=== PATIENT | male | born 1960 | race Caucasian/White ===

== ENCOUNTER 2019-03-19 16:18 | Inpatient (IN) | payer OTHER ==
[2019-03-19 17:32] VITALS: BMI 21.4
--- NOTE | 2019-03-19 19:22 | HP ---
COWS - Scale Resting Pulse: 1= [place] 81-100 Sweatin=Flushed/Facial Moisture Restless Observation: 3= Extraneous Movement Pupil Size: 2= Moderately Dilated (Pupils = 3 mm) Bone or Joint Aches: 0= None Runny Nose/ Eye Tearin= Nasal Congestion GI Upset > 30mins: 2= Nausea/Diarrhea Tremor Observation: 2= Slight Tremor Visible Yawning Observation: 0= None Anxiety or Irritability: 1=Feels Anxious/Irritable Goose Flesh Skin: 0=Smooth Skin COWS Score: 14 CIWA Score Nausea/Vomitin Muscle Tremors: 3 Anxiety: 1-Mildly Anxious Agitation: 1-Slight > Activity Paroxysmal Sweats: 3 (Increased facial moisture) Orientation: 0-Oriented Tacttile Disturbances: 0-None Auditory Disturbances: 0-None Visual Disturbances: 0-None Headache: 3-Moderate (Pain = "6") CIWA-Ar Total Score: 14 - Admission Criteria OASAS Guidelines: Admission for Medically Managed Detox: Requires at least one of the followin. CIWA greater than 12 2. Seizures within the past 24 hours 3. Delirium tremens within the past 24 hours 4. Hallucinations within the past 24 hours 5. Acute intervention needed for co occurring medical disorder 6. Acute intervention needed for co occurring psychiatric disorder 7. Severe withdrawal that cannot be handled at a lower level of care (continued vomiting, continued diarrhea, abnormal vital signs) requiring intravenous medication and/or fluids 8. Patient presents the following: CIWA greater than 12 Admission Criteria Met: Admission criteria met Admission ROS S - HPI Chief Complaint: Here because I want to get off heroin and stop getting high" Allergies/Adverse Reactions: Allergies Allergy/AdvReac Type Severity Reaction Status Date / Time No Known Allergies Allergy Verified 03/19/19 17:33 History of Present Illness: 59 yo presents w/ opiate withdrawal symptoms seeking detox; [facility] for alcohol detox. ELI: 0.0 UTox: +JENNIFER/MOP Denies hx overdose, seizures or blackouts. Heroin/opiate use began at age 58. Currently increased use to 3-4 bags/day x past 2 months. Uses nasal. Last used 03/18/19 in evening Cocaine use began at age 22. Currently uses $50/day. last used 03/18/19 Alcohol use began at age 14. Currently drinking 3-4 pints vodka/day. States relapsed about 7 days ago. Nicotine use began at age 14. Smokes 1 PPD PMHx: Heart defect - hx heart attack - has 2 stents in 2004; Hx Angina w/ intermittent CP. States was admitted to [facility] for cardiac evaluation 2 weeks ago x 2 days. MHHx: Anxiety. Insomnia. Depression: situational: r/t use of drug and homelessness. Denies thoughts of harming self or others. Does not see a Provider. SHx: Homeless. Unemployed. Denies legal issues. Patient Name: Gene Mesa Date: 1960 Address: [address] [place] [address] Sex: Male Rx Written Rx Dispensed Drug Quantity Days Supply Prescriber Name 02/18/2019 02/18/2019 chlordiazepoxide 10 mg capsule 27 6 Heidy Ceballos Exam Limitations: No Limitations - Ebola screening Have you traveled outside of the country in the last 21 days: No Have you had contact with anyone from an Ebola affected area: No Have you been sick,other than usual withdrawal symptoms: No Do you have a fever: No - Review of Systems Constitutional: Chills, Diaphoresis, Changes in sleep (Difficulty falling asleep ), Unintentional Wgt. Loss (r/t drug use) EENT: reports: Blurred Vision, Nose Congestion, Dental Problems (No teeth. Chews and swallows ok) Respiratory: reports: Cough (Chronic. Clear mucous.), SOB with Exertion Cardiac: reports: No Symptoms Reported, Other (Cardiac Hx) GI: reports: Diarrhea (Soft BM x dark brown x 2 today), Nausea, Abdominal cramping : reports: No Symptoms Reported Musculoskeletal: reports: Back Pain (r/t sleeping on poor/ hard surfaces) Integumentary: reports: Lesions (Pusy lesions on arms and legs from picking at skin) Neuro: reports: Headache (Frontal achy headache. "6"), Tremors Endocrine: reports: Increased Thirst Hematology: reports: No Symptoms Reported Psychiatric: reports: Judgement Intact, Agitated, Anxious, Depressed (Denies thoughts of harming self or others.) Patient History - PPD History Previous Implant?: Yes Documented Results: Negative w/o proof Implanted On Prior [facility] Admission?: Yes PPD to be Administered?: Yes - Smoking Cessation Smoking history: Current every day smoker Have you smoked in the past 12 months: Yes Aproximately how many cigarettes per day: 20 Hx Chewing Tobacco Use: No Initiated information on smoking cessation: Yes 'Breaking Loose' booklet given: 03/19/19 - Substance & Tx. History Hx Alcohol Use: Yes Hx Substance Use: Yes Substance Use Type: Alcohol, Cocaine, Heroin Hx Substance Use Treatment: Yes (detox, ) - Substances abused Alcohol Substance route: Oral Frequency: Daily Amount used: VODKA- 3- 4PTS Age of first use: 14 Date of last use: 03/18/19 Heroin Substance route: Inhalation Frequency: Daily Amount used: 3-4 BAGS Age of first use: 58 Date of last use: 03/18/19 Cocaine Substance route: Smoking Frequency: Daily Amount used: 10BAGS Age of first use: 22 Date of last use: 03/18/19 K2/Spice Substance route: Smoking Frequency: Daily Amount used: BLUNTS -10 Age of first use: 54 Date of last use: 03/19/19 Admission Physical Exam [facility] - Vital Signs Vital Signs: Vital Signs - 24 hr 03/19/19 17:24 Temperature 97.4 F L Pulse Rate 91 H Respiratory 18 Rate Blood Pressure 128/71 - Physical General Appearance: Yes: Moderate Distress, Thin, Tremorous, Sweating ( Increased facial moisture), Anxious HEENTM: Yes: EOMI, Hearing grossly Normal, Normocephalic, Normal Voice, ALEXANDER ( Pupils = 3 mm), Pharynx Normal, Nasal Congestion Respiratory: Yes: Lungs Clear (Pulse Ox = 96 %), Normal Breath Sounds, No Respiratory Distress Neck: Yes: No masses,lesions,Nodules, Supple Breast: Yes: Breast Exam Deferred Cardiology: Yes: Regular Rhythm, Regular Rate, S1, S2 Abdominal: Yes: Non Tender, Flat, Soft, Increased Bowel Sounds Genitourinary: Yes: Within Normal Limits Back: Yes: Normal Inspection Musculoskeletal: Yes: full range of Motion, Gait Steady Extremities: Yes: Normal Capillary Refill, Tremors (Mild), Other (Peripheral pulses +) Neurological: Yes: all purpose clerk II-XII NML intact, Fully Oriented, Alert, Motor Strength 5/5, Normal Mood/Affect, Normal Response Integumentary: Yes: Normal Color, Warm, Mottled (White, moist skin between toes. ), Other (Scattederd scabs w/ surrounding erythema and increased warmth (L) arm approx 20 mm; 2(L) leg approc 15 mm; (R) shoulder approx 5 mm; Top 3 middle toes (L) foot) Lymphatic: Yes: Within Normal Limits - Diagnostic (1) Alcohol dependence with withdrawal, uncomplicated Current Visit: Yes Status: Acute (2) Opioid dependence with withdrawal Current Visit: Yes Status: Acute (3) Cocaine abuse, uncomplicated Current Visit: Yes Status: Chronic (4) History of heart artery stent Current Visit: Yes Status: Chronic Comment: Not on anticoagulants (5) Tinea pedis Current Visit: Yes Status: Chronic Qualifiers: Laterality: bilateral Qualified Code(s): B35.3 - Tinea pedis (6) Skin lesions Current Visit: Yes Status: Acute Comment: Scattered scab lesions w/(+) erythema, induration, and increased warmth x 2 weeks (7) Nicotine dependence, unspecified, uncomplicated Current Visit: Yes Status: Chronic Qualifiers: Nicotine product type: cigarettes Qualified Code(s): F17.210 - Nicotine dependence, cigarettes, uncomplicated (8) Hx of angina pectoris Current Visit: Yes Status: Chronic Cleared for Admission S - Detox or Rehab [facility] Level of Care: Medically Managed Detox Regimen/Protocol: Methadone/Librium Claeared for Rehab Admission: No Breathalyzer - Breathalyzer Breathalyzer: 0 Urine Drug Screen - Test Device Lot number: [id number] Expiration date: 01/11/21 - Control Is test valid?: Yes - Results Drug screen NEGATIVE: No Urine drug screen results: JENNIFER-Cocaine, MOP-Opiates Inpatient Rehab Admission - Rehab Decision to Admit Inpatient rehab admission?: No
[2019-03-19] MEDS ORDERED: MAGNESIUM HYDROX 2400MG/30ML ORAL SUSPENSION 30 ML CUP PO PRN (19:58)
[2019-03-19] MEDS ORDERED: MAG HYDROX/AL HYDROX/SIMETH 30 ML UNIT-DOSE CUP PO PRN (19:58)
[2019-03-19] MEDS ORDERED: ACETAMINOPHEN 325 MG TABLET (FP) PO PRN ×2 (19:58)
[2019-03-19] MEDS ORDERED: MENTHOL/PHENOL 1 EACH UD MM PRN (19:58)
[2019-03-19] MEDS ORDERED: MELATONIN 5 MG TABLETS PO PRN (19:58)
[2019-03-19] MEDS ORDERED: NICOTINE POLACRILEX 2 MG GUM BUC PRN (19:58)
[2019-03-19] MEDS ORDERED: METHOCARBAMOL 500 MG TABLET PO PRN (19:58)
[2019-03-19] MEDS ORDERED: BISMUTH SUBSALICYLATE 524 MG/30 ML UD PO PRN (19:58)
[2019-03-19] MEDS ORDERED: guaiFENesin 200 MG/10 ML 10 ML UNIT-DOSE CUPS PO PRN (19:58)
[2019-03-19] MEDS ORDERED: MAGNESIUM CITRATE 300 ML BOTTLE PO PRN (19:58)
[2019-03-19] MEDS ORDERED: IBUPROFEN 400 MG TABLET (FP) PO PRN (19:58)
[2019-03-19] MEDS ORDERED: cloNIDine HCL 0.1 MG TABLET PO PRN (20:08)
[2019-03-19] MEDS ORDERED: METHADONE HCL 10 MG TABLET (FOR DETOX USE ONLY) PO ONE (20:08)
[2019-03-19] MEDS ORDERED: chlordiazePOXIDE HCL 25 MG CAPSULE PO ONE (22:00)
[2019-03-19] MEDS: BACITRACIN 15 GM TUBE TOPICAL OINTMENT TP SCH (22:37)
[2019-03-19] MEDS: THIAMINE HCL 100 MG TABLET (FP) PO SCH (22:38)
[2019-03-19] MEDS: TOLNAFTATE 1% POWDER 45 GM POW TP SCH (22:57)
[2019-03-19] MEDS: CEPHALEXIN MONOHYDRATE 500 MG CAPSULE (UD) PO SCH (23:01)
[2019-03-20] MEDS: CEPHALEXIN MONOHYDRATE 500 MG CAPSULE (UD) PO SCH ×3 (06:21→17:26)
[2019-03-20] MEDS: chlordiazePOXIDE HCL 25 MG CAPSULE PO SCH ×3 (06:21→22:10)
[2019-03-20] MEDS ORDERED: METHADONE HCL 5 MG TABLET (FOR DETOX USE ONLY) PO ONE (10:00)
[2019-03-20] MEDS: BACITRACIN 15 GM TUBE TOPICAL OINTMENT TP SCH ×2 (10:20→22:10)
[2019-03-20] MEDS: PRENATAL VITAMINS W/ FOLIC ACID TABLET (FP) PO SCH (10:20)
[2019-03-20] MEDS: NICOTINE 14 MG/24 HOURS TOPICAL PATCH TD SCH (10:20)
[2019-03-20] MEDS: ASPIRIN 81 MG CHEWABLE TABLETS PO SCH (10:20)
[2019-03-20] MEDS: TOLNAFTATE 1% POWDER 45 GM POW TP SCH ×2 (10:21→22:13)
[2019-03-20 10:44] LABS: HEMATOCRIT 39.6 % (35.4-49); HEMOGLOBIN 13.1 GM/dL (11.7-16.9); MCHC 33.2 g/dl (32.0-35.9); MEAN CELL VOLUME 96.4 fl (80-96); PLATELET COUNT 349 K/MM3 (134-434); RBC 4.11 M/mm3 (4.00-5.60); RDW 14.3 % (11.9-15.9); WHITE BLOOD COUNT 7.3 K/mm3 (4.0-10.0)
[2019-03-20 10:51] LABS: ALBUMIN 3.2 g/dl (3.4-5.0); BILIRUBIN,TOTAL 0.2 mg/dL (0.2-1); BLOOD UREA NITROGEN 12.9 mg/dL (7-18); CALCIUM 8.9 mg/dL (8.5-10.1); POTASSIUM 4.5 mmol/L (3.5-5.1); TOT PROT 7.1 g/dl (6.4-8.2)
--- NOTE | 2019-03-20 12:51 | PN ---
S CIWA - CIWA Score Nausea/Vomitin-No Nausea/No Vomiting Muscle Tremors: 2 Anxiety: 3 Agitation: 1-Slight > Activity Paroxysmal Sweats: 3 Orientation: 0-Oriented Tacttile Disturbances: 0-None Auditory Disturbances: 0-None Visual Disturbances: 0-None Headache: 2-Mild CIWA-Ar Total Score: 11 BHS COWS - Scale Resting Pulse: 0= [place] 80 or Below Sweatin= Beads of Sweat on Face Restless Observation: 1= Difficult to Sit Still Pupil Size: 0= Normal to Room Light Bone or Joint Aches: 2= Severe Diffuse Aches Runny Nose/ Eye Tearin= None GI Upset > 30mins: 1= Stomach Cramp Tremor Observation of Outstretched Hands: 0= None Yawning Observation: 1= 1-2x During Session Anxiety or Irritability: 2=Irritable/Anxious Goose Flesh Skin: 0=Smooth Skin COWS Score: 10 S Progress Note (SOAP) Subjective: c/o sweats, anxiety, irritability, muscle aches, and shakes. Objective: 03/20/19 12:52 Vital Signs 03/20/19 03/20/19 06:52 08:40 Temperature 97.8 F 97.8 F Pulse Rate 66 77 Respiratory 18 18 Rate Blood Pressure 107/60 112/57 L Laboratory Last Values WBC 7.3 K/mm3 (4.0-10.0) 03/20/19 07:30 RBC 4.11 M/mm3 (4.00-5.60) 03/20/19 07:30 Hgb 13.1 GM/dL (11.7-16.9) 03/20/19 07:30 Hct 39.6 % (35.4-49) 03/20/19 07:30 MCV 96.4 fl (80-96) H 03/20/19 07:30 MCH 32.0 pg (25.7-33.7) 03/20/19 07:30 MCHC 33.2 g/dl (32.0-35.9) 03/20/19 07:30 RDW 14.3 % (11.9-15.9) 03/20/19 07:30 Plt Count 349 K/MM3 (134-434) 03/20/19 07:30 MPV 8.0 fl (7.5-11.1) 03/20/19 07:30 Sodium 137 mmol/L (136-145) 03/20/19 07:30 Potassium 4.5 mmol/L (3.5-5.1) 03/20/19 07:30 Chloride 104 mmol/L (98-107) 03/20/19 07:30 Carbon Dioxide 28 mmol/L (21-32) 03/20/19 07:30 Anion Gap 5 MMOL/L (8-16) L 03/20/19 07:30 BUN 12.9 mg/dL (7-18) 03/20/19 07:30 Creatinine 1.0 mg/dL (0.55-1.3) 03/20/19 07:30 Est GFR (CKD-EPI)AfAm 96.40 03/20/19 07:30 Est GFR (CKD-EPI)NonAf 83.18 03/20/19 07:30 Random Glucose 92 mg/dL (74-106) 03/20/19 07:30 Calcium 8.9 mg/dL (8.5-10.1) 03/20/19 07:30 Total Bilirubin 0.2 mg/dL (0.2-1) 03/20/19 07:30 AST 25 U/L (15-37) 03/20/19 07:30 ALT 33 U/L (13-61) 03/20/19 07:30 Alkaline Phosphatase 83 U/L (45-117) 03/20/19 07:30 Total Protein 7.1 g/dl (6.4-8.2) 03/20/19 07:30 Albumin 3.2 g/dl (3.4-5.0) L 03/20/19 07:30 RPR Titer Nonreactive (NONREACTIVE) 03/20/19 07:30 Labs noted. Assessment: 03/20/19 12:52 AOX3, in no acute respiratory distress. Full ROM, ambulating in the unit. Withdrawal symptoms. Plan: Continue detox.
--- NOTE | 2019-03-20 16:33 | EKG ---
Test Reason : Blood Pressure : / mmHG Vent. Rate : 083 BPM Atrial Rate : 083 BPM P-R Int : 140 ms QRS Dur : 078 ms QT Int : 362 ms P-R-T Axes : 062 070 066 degrees QTc Int : 425 ms NORMAL SINUS RHYTHM NORMAL ECG NO PREVIOUS ECGS AVAILABLE Confirmed by MD MARYA, MOSES ([id number]) on 03/20/2019 4:32:51 PM Referred By: Confirmed By:MSOES MALHOTRA MD
[2019-03-20] MEDS ORDERED: chlordiazePOXIDE HCL 10 MG CAPSULE PO PRN (20:23)
[2019-03-20] MEDS: THIAMINE HCL 100 MG TABLET (FP) PO SCH (22:11)
[2019-03-21] MEDS: CEPHALEXIN MONOHYDRATE 500 MG CAPSULE (UD) PO SCH ×5 (00:34→23:12)
[2019-03-21] MEDS: chlordiazePOXIDE 5 MG CAPSULE PO SCH ×3 (05:30→22:17)
[2019-03-21] MEDS ORDERED: METHADONE HCL 10 MG TABLET (FOR DETOX USE ONLY) PO ONE (10:00)
[2019-03-21] MEDS: ASPIRIN 81 MG CHEWABLE TABLETS PO SCH (10:11)
[2019-03-21] MEDS: PRENATAL VITAMINS W/ FOLIC ACID TABLET (FP) PO SCH (10:11)
[2019-03-21] MEDS: NICOTINE 14 MG/24 HOURS TOPICAL PATCH TD SCH (10:12)
[2019-03-21] MEDS: BACITRACIN 15 GM TUBE TOPICAL OINTMENT TP SCH ×2 (10:14→22:17)
--- NOTE | 2019-03-21 10:52 | PN ---
[facility] CIWA - CIWA Score Nausea/Vomitin-No Nausea/No Vomiting Muscle Tremors: 3 Anxiety: 2 Agitation: 1-Slight > Activity Paroxysmal Sweats: 2 Orientation: 0-Oriented Tacttile Disturbances: 0-None Auditory Disturbances: 0-None Visual Disturbances: 1-Very Mild Sensitivity Headache: 0-None Present CIWA-Ar Total Score: 9 S COWS - Scale Resting Pulse: 0= [place] 80 or Below Sweatin= Chills/Flushing Restless Observation: 0= Sits Still Pupil Size: 0= Normal to Room Light Bone or Joint Aches: 1= Mild Discomfort Runny Nose/ Eye Tearin= Nasal Congestion GI Upset > 30mins: 2= Nausea/Diarrhea Tremor Observation of Outstretched Hands: 2= Slight Tremor Visible Yawning Observation: 0= None Anxiety or Irritability: 2=Irritable/Anxious Goose Flesh Skin: 0=Smooth Skin COWS Score: 9 [facility] Progress Note (SOAP) Subjective: 59 years old male admitted on 03/19/19 for alcohol and opiate withdrawal sx management treating with librium and methadone detox regiments feeling ok today tolerated keflex well ate breakfast resting in bed hesitates to go to the group discussed the benefits of behavior and psychosocial therapies Objective: 03/21/19 11:01 Vital Signs Temperature 96.7 F L 03/21/19 06:32 Pulse Rate 61 03/21/19 06:32 Respiratory Rate 16 03/21/19 06:32 Blood Pressure 98/65 03/21/19 06:32 O2 Sat by Pulse Oximetry (%) Laboratory Last Values WBC 7.3 K/mm3 (4.0-10.0) 03/20/19 07:30 RBC 4.11 M/mm3 (4.00-5.60) 03/20/19 07:30 Hgb 13.1 GM/dL (11.7-16.9) 03/20/19 07:30 Hct 39.6 % (35.4-49) 03/20/19 07:30 MCV 96.4 fl (80-96) H 03/20/19 07:30 MCH 32.0 pg (25.7-33.7) 03/20/19 07:30 MCHC 33.2 g/dl (32.0-35.9) 03/20/19 07:30 RDW 14.3 % (11.9-15.9) 03/20/19 07:30 Plt Count 349 K/MM3 (134-434) 03/20/19 07:30 MPV 8.0 fl (7.5-11.1) 03/20/19 07:30 Sodium 137 mmol/L (136-145) 03/20/19 07:30 Potassium 4.5 mmol/L (3.5-5.1) 03/20/19 07:30 Chloride 104 mmol/L (98-107) 03/20/19 07:30 Carbon Dioxide 28 mmol/L (21-32) 03/20/19 07:30 Anion Gap 5 MMOL/L (8-16) L 03/20/19 07:30 BUN 12.9 mg/dL (7-18) 03/20/19 07:30 Creatinine 1.0 mg/dL (0.55-1.3) 03/20/19 07:30 Est GFR (CKD-EPI)AfAm 96.40 03/20/19 07:30 Est GFR (CKD-EPI)NonAf 83.18 03/20/19 07:30 Random Glucose 92 mg/dL (74-106) 03/20/19 07:30 Calcium 8.9 mg/dL (8.5-10.1) 03/20/19 07:30 Total Bilirubin 0.2 mg/dL (0.2-1) 03/20/19 07:30 AST 25 U/L (15-37) 03/20/19 07:30 ALT 33 U/L (13-61) 03/20/19 07:30 Alkaline Phosphatase 83 U/L (45-117) 03/20/19 07:30 Total Protein 7.1 g/dl (6.4-8.2) 03/20/19 07:30 Albumin 3.2 g/dl (3.4-5.0) L 03/20/19 07:30 RPR Titer Nonreactive (NONREACTIVE) 03/20/19 07:30 lab noted Assessment: 03/21/19 11:01 alcohol and opiate withdrawal Plan: librium and methadone regiments
[2019-03-21] MEDS: TOLNAFTATE 1% POWDER 45 GM POW TP SCH ×2 (13:30→22:17)
[2019-03-21] MEDS: THIAMINE HCL 100 MG TABLET (FP) PO SCH (22:17)
[2019-03-22] MEDS: chlordiazePOXIDE HCL 10 MG CAPSULE PO SCH ×3 (06:54→22:09)
[2019-03-22] MEDS: CEPHALEXIN MONOHYDRATE 500 MG CAPSULE (UD) PO SCH ×4 (06:54→23:03)
[2019-03-22] MEDS ORDERED: METHADONE HCL 10 MG TABLET (FOR DETOX USE ONLY) PO ONE (10:00)
[2019-03-22] MEDS: ASPIRIN 81 MG CHEWABLE TABLETS PO SCH (10:16)
[2019-03-22] MEDS: NICOTINE 14 MG/24 HOURS TOPICAL PATCH TD SCH (10:17)
[2019-03-22] MEDS: PRENATAL VITAMINS W/ FOLIC ACID TABLET (FP) PO SCH (10:17)
[2019-03-22] MEDS: BACITRACIN 15 GM TUBE TOPICAL OINTMENT TP SCH ×2 (10:17→23:04)
[2019-03-22] MEDS: TOLNAFTATE 1% POWDER 45 GM POW TP SCH ×2 (10:18→23:04)
--- NOTE | 2019-03-22 13:31 | PN ---
S CIWA - CIWA Score Nausea/Vomitin-No Nausea/No Vomiting Muscle Tremors: 1-None Visible, but [place] Anxiety: 1-Mildly Anxious Agitation: 1-Slight > Activity Paroxysmal Sweats: 1-Minimal Palms Moist Orientation: 0-Oriented Tacttile Disturbances: 0-None Auditory Disturbances: 0-None Visual Disturbances: 0-None Headache: 1-Very Mild CIWA-Ar Total Score: 5 BHS COWS - Scale Resting Pulse: 0= [place] 80 or Below Sweatin= Chills/Flushing Restless Observation: 0= Sits Still Pupil Size: 0= Normal to Room Light Bone or Joint Aches: 1= Mild Discomfort Runny Nose/ Eye Tearin= None GI Upset > 30mins: 1= Stomach Cramp Tremor Observation of Outstretched Hands: 1= Tremor [place], Not Seen Yawning Observation: 0= None Anxiety or Irritability: 1=Feels Anxious/Irritable Goose Flesh Skin: 0=Smooth Skin COWS Score: 5 S Progress Note (SOAP) Subjective: 59 years old male admitted on 03/19/19 for alcohol and opiate withdrawal sx management treating with librium and methadone detox regiments feeling better today encourage to keep clean and dry between toe and follow up with semiconductor testing group leader in replaced by [facility] service Objective: 03/22/19 13:30 Vital Signs Temperature 97.1 F L 03/22/19 12:46 Pulse Rate 80 03/22/19 12:46 Respiratory Rate 18 03/22/19 12:46 Blood Pressure 112/65 03/22/19 12:46 O2 Sat by Pulse Oximetry (%) Laboratory Last Values WBC 7.3 K/mm3 (4.0-10.0) 03/20/19 07:30 RBC 4.11 M/mm3 (4.00-5.60) 03/20/19 07:30 Hgb 13.1 GM/dL (11.7-16.9) 03/20/19 07:30 Hct 39.6 % (35.4-49) 03/20/19 07:30 MCV 96.4 fl (80-96) H 03/20/19 07:30 MCH 32.0 pg (25.7-33.7) 03/20/19 07:30 MCHC 33.2 g/dl (32.0-35.9) 03/20/19 07:30 RDW 14.3 % (11.9-15.9) 03/20/19 07:30 Plt Count 349 K/MM3 (134-434) 03/20/19 07:30 MPV 8.0 fl (7.5-11.1) 03/20/19 07:30 Sodium 137 mmol/L (136-145) 03/20/19 07:30 Potassium 4.5 mmol/L (3.5-5.1) 03/20/19 07:30 Chloride 104 mmol/L (98-107) 03/20/19 07:30 Carbon Dioxide 28 mmol/L (21-32) 03/20/19 07:30 Anion Gap 5 MMOL/L (8-16) L 03/20/19 07:30 BUN 12.9 mg/dL (7-18) 03/20/19 07:30 Creatinine 1.0 mg/dL (0.55-1.3) 03/20/19 07:30 Est GFR (CKD-EPI)AfAm 96.40 03/20/19 07:30 Est GFR (CKD-EPI)NonAf 83.18 03/20/19 07:30 Random Glucose 92 mg/dL (74-106) 03/20/19 07:30 Calcium 8.9 mg/dL (8.5-10.1) 03/20/19 07:30 Total Bilirubin 0.2 mg/dL (0.2-1) 03/20/19 07:30 AST 25 U/L (15-37) 03/20/19 07:30 ALT 33 U/L (13-61) 03/20/19 07:30 Alkaline Phosphatase 83 U/L (45-117) 03/20/19 07:30 Total Protein 7.1 g/dl (6.4-8.2) 03/20/19 07:30 Albumin 3.2 g/dl (3.4-5.0) L 03/20/19 07:30 RPR Titer Nonreactive (NONREACTIVE) 03/20/19 07:30 lab noted Assessment: 03/22/19 13:30 alcohol and opiate withdrawal Plan: librum and methadon regiments
[2019-03-22] MEDS ORDERED: chlordiazePOXIDE HCL 10 MG CAPSULE PO PRN ×2 (19:28)
[2019-03-22] MEDS: THIAMINE HCL 100 MG TABLET (FP) PO SCH (22:09)
[2019-03-23] MEDS ORDERED: chlordiazePOXIDE HCL 10 MG CAPSULE PO ONE (05:00)
[2019-03-23] MEDS: CEPHALEXIN MONOHYDRATE 500 MG CAPSULE (UD) PO SCH ×2 (05:06→13:35)
[2019-03-23] MEDS ORDERED: METHADONE HCL 5 MG TABLET (FOR DETOX USE ONLY) PO ONE (06:00)
[2019-03-23 06:11] VITALS: TEMP 97.1
[2019-03-23 09:13] VITALS: BP 107/62; PULSE 81
--- NOTE | 2019-03-23 09:38 | DS ---
[facility] Detox Discharge Summary Admission Date: 03/19/19 Discharge Date: 03/23/19 - History Present History: Alcohol Dependence, Opioid Dependence Additional Comments: 59 years old male admitted on 03/19/19 for alcohol and opiate withdrawal sx management treated with librium and methadone detox regiments patient has completed librium and methadone regiments alert oriented x 3 speech clearly coherently steady gait patient avoids groups and meetings of behavior and psychosocial therapies while in detox patient rejects aftercare referral as per counselor that patient prefers to go to community self help meeting cardiac s1s2 regular rate rhythm respiratory clear lungs bilaterally on auscultation extremities full range of motion Pertinent Past History: received nurse production manager: the patient dose not want to leave the detox facility took his clothe off and walking around without clothe urinating on floor and smear feces on the wall ambulance was called to [facility] journalists and other writers call [facility] for patient information [phone] no tow truck dispatcher for information [phone] no tow truck dispatcher for information [phone] tow truck dispatcher agrees to take down Mr Mesa's current mental condition - Physical Exam Results Vital Signs: Vital Signs Temperature 97.1 F L 03/23/19 08:42 Pulse Rate 81 03/23/19 08:42 Respiratory Rate 18 03/23/19 08:42 Blood Pressure 107/62 03/23/19 08:42 O2 Sat by Pulse Oximetry (%) time for discharge: 20minutes Pertinent Admission Physical Exam Findings: alcohol and opiate withdrawal Laboratory Last Values WBC 7.3 K/mm3 (4.0-10.0) 03/20/19 07:30 RBC 4.11 M/mm3 (4.00-5.60) 03/20/19 07:30 Hgb 13.1 GM/dL (11.7-16.9) 03/20/19 07:30 Hct 39.6 % (35.4-49) 03/20/19 07:30 MCV 96.4 fl (80-96) H 03/20/19 07:30 MCH 32.0 pg (25.7-33.7) 03/20/19 07:30 MCHC 33.2 g/dl (32.0-35.9) 03/20/19 07:30 RDW 14.3 % (11.9-15.9) 03/20/19 07:30 Plt Count 349 K/MM3 (134-434) 03/20/19 07:30 MPV 8.0 fl (7.5-11.1) 03/20/19 07:30 Sodium 137 mmol/L (136-145) 03/20/19 07:30 Potassium 4.5 mmol/L (3.5-5.1) 03/20/19 07:30 Chloride 104 mmol/L (98-107) 03/20/19 07:30 Carbon Dioxide 28 mmol/L (21-32) 03/20/19 07:30 Anion Gap 5 MMOL/L (8-16) L 03/20/19 07:30 BUN 12.9 mg/dL (7-18) 03/20/19 07:30 Creatinine 1.0 mg/dL (0.55-1.3) 03/20/19 07:30 Est GFR (CKD-EPI)AfAm 96.40 03/20/19 07:30 Est GFR (CKD-EPI)NonAf 83.18 03/20/19 07:30 Random Glucose 92 mg/dL (74-106) 03/20/19 07:30 Calcium 8.9 mg/dL (8.5-10.1) 03/20/19 07:30 Total Bilirubin 0.2 mg/dL (0.2-1) 03/20/19 07:30 AST 25 U/L (15-37) 03/20/19 07:30 ALT 33 U/L (13-61) 03/20/19 07:30 Alkaline Phosphatase 83 U/L (45-117) 03/20/19 07:30 Total Protein 7.1 g/dl (6.4-8.2) 03/20/19 07:30 Albumin 3.2 g/dl (3.4-5.0) L 03/20/19 07:30 RPR Titer Nonreactive (NONREACTIVE) 03/20/19 07:30 lab noted - Treatment Hospital Course: Detox Protocol Followed, Detoxed Safely, Responded well, Discharged Condition Good, Rehab Referral Accepted Patient has Accepted a Rehab Referral to: community support approach - Medication Discharge Medications: Ambulatory Orders Aspirin [ASA -] 81 mg PO DAILY 03/19/19 - Diagnosis (1) Alcohol dependence with withdrawal, uncomplicated Status: Acute (2) Opioid dependence with withdrawal Status: Acute (3) Nicotine dependence, unspecified, uncomplicated Status: Acute Qualifiers: Nicotine product type: cigarettes Qualified Code(s): F17.210 - Nicotine dependence, cigarettes, uncomplicated - AMA Did Patient Leave Against Medical Advice: No CIWA Score - CIWA Score Nausea/Vomitin-No Nausea/No Vomiting Muscle Tremors: 1-None Visible, but [place] Anxiety: 0-No Anxiety, at Ease Agitation: 0-Normal Activity Paroxysmal Sweats: 1-Minimal Palms Moist Orientation: 0-Oriented Tacttile Disturbances: 0-None Auditory Disturbances: 0-None Visual Disturbances: 0-None Headache: 0-None Present CIWA-Ar Total Score: 2 COWS (PN) - Opiate Withdrawal Resting Pulse: 1= [place] 81-100 Sweatin= No chills or Flushing Restless Observation: 0= Sits Still Pupil Size: 0= Normal to Room Light Bone or Joint Aches: 0= None Runny Nose/ Eye Tearin= None GI Upset > 30mins: 0= None Tremor Observation of Outstretched Hands: 1= Tremor [place], Not Seen Yawning Observation: 0= None Anxiety or Irritability: 1=Feels Anxious/Irritable Goose Flesh Skin: 0=Smooth Skin COWS Score: 3
[2019-03-23] MEDS: ASPIRIN 81 MG CHEWABLE TABLETS PO SCH (10:52)
[2019-03-23] MEDS: BACITRACIN 15 GM TUBE TOPICAL OINTMENT TP SCH (10:53)
[2019-03-23] MEDS: NICOTINE 14 MG/24 HOURS TOPICAL PATCH TD SCH (10:53)
[2019-03-23] MEDS: PRENATAL VITAMINS W/ FOLIC ACID TABLET (FP) PO SCH (10:53)
[2019-03-23] MEDS: TOLNAFTATE 1% POWDER 45 GM POW TP SCH (10:53)
== END 2019-03-23 10:22 | disposition home or self-care (01) | DRG 773 ==
LOC: YASAS 16:18 → Y3N 20:35
PROVIDERS: ADMIT Allergy & Immunology; ATTEND Allergy & Immunology
PROC: HZ2ZZZZ Detoxification Services for Substance Abuse Treatment (ICD-10-PCS; principal; 2019-03-19)
DX: F10.230 Alcohol dependence with withdrawal, uncomplicated (principal); F11.23 Opioid dependence with withdrawal; F14.20 Cocaine dependence, uncomplicated; F12.20 Cannabis dependence, uncomplicated; F17.210 Nicotine dependence, cigarettes, uncomplicated; F32.9 Major depressive disorder, single episode, unspecified; F41.9 Anxiety disorder, unspecified; G47.00 Insomnia, unspecified; I25.119 Atherosclerotic heart disease of native coronary artery with unspecified angina pectoris; I25.2 Old myocardial infarction; Z95.5 Presence of coronary angioplasty implant and graft; L98.8 Other specified disorders of the skin and subcutaneous tissue; B35.3 Tinea pedis; Z79.82 Long term (current) use of aspirin; Z59.0 Homelessness
CPT/HCPCS: 36415; 80053; 85027; 86593; 93005; 93010